=== PATIENT | male | born 1960 | race Caucasian/White ===

== ENCOUNTER 2020-07-24 08:26 | Inpatient (IN) | payer SELFPAY ==
--- NOTE | 2020-07-24 09:00 | RAD REPORT ---
EXAM DESCRIPTION: CT - Head Brain Wo Cont - 07/24/2020 8:51 am CLINICAL HISTORY: DIZZINESS, altered mental status COMPARISON: <Comparisons> TECHNIQUE: Axial 5 mm thick images of the head were obtained without IV contrast. All CT scans are performed using dose optimization technique as appropriate and may include automated exposure control or mA/KV adjustment according to patient size. FINDINGS: No intracranial hemorrhage, mass, edema or shift of mid-line structures. No acute cortical based infarction confirmed. No cortical edema or sulcal effacement. Atrophy changes are present slig htly greater than usually seen in a patient this age. Ventricles are in proportion to the amount of v olume loss. No abnormal extra-axial fluid collections. Chronic ischemic changes minimal. Arterial and physiologic calcifications are present. Mastoid air cells and visualized portions of the paranasal sinuses are clear. No acute bony findings. IMPRESSION: Negative noncontrast CT head examination for acute finding. Atrophy changes are present slightly greater than typically seen at this age.
[2020-07-24] MEDS ORDERED: NA CHLORIDE 0.9% 1,000 ML ONE ×2 (09:04→11:06)
[2020-07-24] MEDS ORDERED: FOLIC ACID 5 MG/ML VIAL ONE (09:06)
[2020-07-24 09:12] LABS: Absolute Lymphocytes (CBC) 0.6 K/uL (0.7-4.9); Basophils % 0.4 % (0-1.3); Hematocrit 37.9 % (39.6-49.0); Lymphocytes % 6.6 % (15.3-44.8); MPV 11.6 fL (7.6-11.3); RBC Red Blood Cell Count 3.87 M/uL (4.33-5.43)
[2020-07-24] MEDS ORDERED: FAMOTIDINE 20 MG/2 ML VIAL IV ONE (09:14)
[2020-07-24] MEDS ORDERED: THIAMINE 200 MG/2 ML INJ ONE ×2 (09:14→11:06)
[2020-07-24 09:16] LABS: Protime INR 1.46
[2020-07-24 09:42] LABS: ALT/SGPT 99 U/L (12-78); AST/SGOT 217 U/L (15-37); Albumin 3.2 g/dL (3.4-5.0); Alkaline Phosphatase 106 U/L (45-117); BUN Blood Urea Nitrogen 15 mg/dL (7-18); Bicarbonate 30 mmol/L (21-32); Bilirubin Direct 5.3 mg/dL (0-0.2); Glucose Level 140 mg/dL (74-106); Lipase 2713 U/L (73-393); NT PRO-BNP 403 pg/mL (<125); Protein, Total 7.7 g/dL (6.4-8.2); Sodium Level 133 mmol/L (136-145); Troponin (Emerg Dept Use Only) < 0.02 ng/mL (0.0-0.045)
[2020-07-24 09:46] LABS: Magnesium 1.4 mg/dL (1.8-2.4)
[2020-07-24 10:01] LABS: Blood Morphology Comment NOT SEEN (NOT SEEN); Platelet Estimate DECR; White Blood Cell Scan OK (OK)
--- NOTE | 2020-07-24 10:56 | RAD REPORT ---
EXAM DESCRIPTION: - CP - 07/24/2020 10:23 am CLINICAL HISTORY: DIZZINESS COMPARISON: No comparisons TECHNIQUE: Real-time sonographic evaluation of bilateral carotid and vertebral systems was performed . Vernon scale and Doppler interrogation were performed with waveform tracing bilaterally. FINDINGS: Normal high resistance waveforms are noted in both external carotid arteries. The common c arotid arteries and internal carotid arteries show normal low resistance waveforms. Calcified and noncalcified plaquing changes are present. No significant degree of luminal narrowing i dentifiable. Internal carotid arteries were quite tortuous increasing difficulty the examination. Pea k systolic and end diastolic velocity values and the ICA/CCA ratios are in the non-hemodynamically si gnificant range. Antegrade flow seen in both vertebral arteries. Velocity values and ratios were recorded and are retained in the patient's imaging records. IMPRESSION: Calcified plaquing changes on the right not seen to significantly narrow the vessel lume n. Velocity values and ratios do not indicate any significant degree of stenosis.
--- NOTE | 2020-07-24 11:02 | RAD REPORT ---
EXAM DESCRIPTION: CT - Abdomen Pelvis W Contrast - 07/24/2020 10:49 am CLINICAL HISTORY: ABD PAIN COMPARISON: No comparisons TECHNIQUE: Biphasic, helical CT imaging of the abdomen and pelvis was performed following 100 ml non -ionic IV contrast. No oral contrast. All CT scans are performed using dose optimization technique as appropriate and may include automated exposure control or mA/KV adjustment according to patient size. FINDINGS: No suspicious findings in the lung bases. The liver is grossly abnormal. A diffuse fatty infiltration is present. There is a prominent lobulate d contour of the liver with greater prominence of the left lobe and caudate lobe relative to the righ t. Areas of fibrotic change are scattered throughout the hepatic parenchyma. There is a mild heteroge neous enhancement and attenuation pattern of the liver; however, no clearly defined lesion seen that would indicate hepatocellular carcinoma. No portal vein thrombus. No pancreatic parenchymal mass lesion or peripancreatic changes seen. Mild splenomegaly changes are p resent with no focal splenic finding. Gallbladder and biliary tree are also without suspicious findin g. Gallstones can be occult on CT imaging. Symmetric renal function is seen with no hydronephrosis or suspicious renal mass. Enhancement pattern does not indicate pyelonephritis. Two nonobstructing 3 mm calculi seen in the lower pole of the righ t kidney. Urinary bladder is only partially filled. Lopez appear thickened and do appear to enhance s lightly. Cystitis is certainly possible. Prostate calcifications are present. No seminal vesicle abno rmality. No adrenal abnormalities. No gastric dilatation or gastric wall thickening. No abnormal edema or enhancement of the gastric par enchyma. No acute small bowel finding identifiable. Appendix is normal. No acute colon finding seen. No ascites present. No free air or pneumatosis. No hernia, mass or bulky lymphadenopathy. Disc and bone degenerative changes are present in the lower lumbar spine. No acute bone process. Scattered vascular calcifications are present. A few varices are seen in the mesenteries. IMPRESSION: Advanced cirrhosis changes in the liver with fatty infiltration and fibrosis changes jemal dent. No focal liver lesion to indicate hepatocellular carcinoma. No ascites, lymphadenopathy or other evidence for intra-abdominal or intrapelvic malignancy. Urinary bladder lopez are thickened. Cystitis would be possible. CT findings do not indicate pyelonep hritis. No acute or emergent GI finding.
[2020-07-24] MEDS ORDERED: MULTIVITAMINS 10 ML VIAL (INJ) IV ONE (11:06)
[2020-07-24] MEDS ORDERED: POTASSIUM 25 MEQ EFFERV TAB ONE (11:06)
[2020-07-24] MEDS ORDERED: Magnesium Sulfate 2gm IVPB 2 G/50 ML BAG IV ONE (11:08)
[2020-07-24 11:23] LABS: Urine Blood 1+ (Negative); Urine Glucose Negative (Negative); Urine Protein Trace (Negative); Urine Specific Gravity 1.015 (1.005-1.030)
[2020-07-24 11:31] LABS: Urine Blood 1+ (Negative); Urine Glucose NEGATIVE (Negative); Urine Protein TRACE (Negative); Urine Specific Gravity 1.015 (1.005-1.030)
[2020-07-24] MEDS ORDERED: CEFTRIAXONE/SWI 1gm 1 GM/10 ML SYR ONE (11:55)
--- NOTE | 2020-07-24 12:00 | ER ---
Nurse's Notes [facility] Name: Alexis Britton Age: 60 yrs Sex: Male : 1960 Arrival Date: 07/24/2020 Time: 08:30 Bed 7 Private MD: Diagnosis: Dizziness and giddiness;Altered mental status, unspecified;Alcoholic cirrhosis of liver without ascites;Hypomagnesemia;Hypokalemia;Urinary tract infection, site not specified;Alcohol abuse;Hypercalcemia Presentation: 07/24 08:43 Chief complaint: Friend reports N/V x 4 days, confusion and dizziness x 2 days. Seen at [facility] yesterday, dx: acute pyelonephritis, gastroenteritis, abnormal LFTs, volume depletion with hypovolemia, alcoholic cirrhosis, left AMA. Coronavirus screen: At this time, the client does not indicate any symptoms associated with coronavirus-19. Ebola Screen: No symptoms or risks identified at this time. Initial Sepsis Screen: Does the patient meet any 2 criteria? No. Patient's initial sepsis screen is negative. Does the patient have a suspected source of infection? No. Patient's initial sepsis screen is negative. Risk Assessment: Do you want to hurt yourself or someone else? Patient reports no desire to harm self or others. Onset of symptoms was July 19, 2020. 08:43 Method Of Arrival: Wheelchair 08:43 Acuity: HOLLY 2 hb Triage Assessment: 08:48 General: Appears in no apparent distress. Behavior is calm, cooperative. Pain: Pain hb currently is 8 out of 10 on a pain scale. EENT: No signs and/or symptoms were reported regarding the EENT system. Neuro: Level of Consciousness is awake, alert, obeys commands, Oriented to person, time, situation, Reports dizziness. Cardiovascular: Patient's skin is warm and dry. Rhythm is regular. Respiratory: Airway is patent Respiratory effort is even, unlabored, Respiratory pattern is regular, symmetrical. GI: Reports nausea, vomiting. : No signs and/or symptoms were reported regarding the genitourinary system. Derm: Skin is pink, warm \T\ dry. Musculoskeletal: No signs and/or symptoms reported regarding the musculoskeletal system. Historical: - Allergies: 08:47 No Known Allergies; - Home Meds: 11:10 None [Active]; ss - PMHx: 11:10 Cirrhosis; Alcoholism; ss - Immunization history:: Adult Immunizations up to date. - Social history:: Smoking status: Patient/guardian denies using tobacco. - Family history:: not pertinent. Screenin:47 Abuse screen: Denies threats or abuse. Denies injuries from another. Nutritional hb screening: No deficits noted. Tuberculosis screening: No symptoms or risk factors identified. Fall Risk Total Sparks Fall Scale indicates Low Risk Score (25-44 pts). Fall prevention measures have been instituted. Frequent Obs/Assesments occuring Family Present and informed to notify staff if they need to leave bedside As available Patient and Family Educated on Fall Prevention Program and strategies. Assessment: 08:48 General: see triage assessment. hb 09:30 Reassessment: Patient appears in no apparent distress at this time. No changes from hb previously documented assessment. Patient and/or family updated on plan of care and expected duration. Pain level reassessed. 10:50 Reassessment: pt in imaging at this time, not available for vs or medication admin at tw2 this time. 10:58 Reassessment: Pt returned from radiology. NAD. Friend remains at bedside. hb 11:32 Reassessment: provider at bedside at this time going over results with pt and pts tw2 friend. 12:20 Reassessment: provider Dr. Morales at bedside. tw2 13:36 Reassessment: Patient and/or family updated on plan of care and expected duration. Pain tw2 level reassessed. pt becoming restless, pulling monitoring cords off, pt educated as to the need to continue monitoring in his condition. pt agreeable at this time, provider notified. 14:11 Reassessment: Patient appears in no apparent distress at this time. No changes from hb previously documented assessment. Patient and/or family updated on plan of care and expected duration. Pain level reassessed. Vital Signs: 08:43 BP 137 / 88; Pulse 82; Resp 16; Temp 98.2; Pulse Ox 100% on R/A; Pain 8/10; hb 11:34 BP 131 / 85; Pulse 82; Resp 17; Pulse Ox 96% on R/A; tw2 12:30 BP 117 / 84; Pulse 81; Resp 17; Pulse Ox 98% on R/A; tw2 13:35 BP 122 / 83; Pulse 79; Resp 17; Pulse Ox 96% on R/A; tw2 14:11 BP 128 / 101; Pulse 82; Resp 18; Pulse Ox 96% on R/A; hb ED Course: 08:30 Patient arrived in ED. rg4 08:35 Segun Russo MD is Attending Physician. zuly 08:36 Beth Priest, EVELIA is Primary Nurse. tw2 08:46 Triage completed. hb 08:47 Arm band placed on. hb 08:47 Patient has correct armband on for positive identification. Placed in gown. Bed in low hb position. Call light in reach. civil cadd technician on. Pulse ox on. NIBP on. 08:51 CT Head Brain wo Cont In Process Unspecified. EDMS 09:05 AMMONIA Sent. tw2 10:09 US Carotid Artery Bilateral In Process Unspecified. EDMS 10:49 CT Abd/Pelvis - IV Contrast Only In Process Unspecified. EDMS 11:55 Marvin Morales is Hospitalizing Provider. zuly 12:38 XRAY Chest (1 view) In Process Unspecified. EDMS 14:14 No provider procedures requiring assistance completed. Patient admitted, IV remains in hb place. intact, No redness/swelling at site. Administered Medications: Discontinued: NS 0.9% 1000 ml IV at 125 ml/hr continuous 09:00 Drug: NS 0.9% 500 ml Route: IV; Rate: bolus; Site: right forearm; tw2 09:32 Follow up: Response: No adverse reaction; IV Status: Completed infusion; IV Intake: hb 500ml 09:00 Drug: foLIC Acid 1 mg Route: IVPB; Site: right forearm; tw2 09:02 Drug: Thiamine 100 mg Route: IV; Rate: bolus; Site: right forearm; tw2 09:35 Follow up: Response: No adverse reaction hb 09:02 Drug: Pepcid (famotidine) 20 mg Route: IVP; Site: right forearm; tw2 10:50 Follow up: Response: No adverse reaction tw2 09:34 Drug: NS 0.9% 1000 ml Route: IV; Rate: 125 ml/hr; Site: right forearm; tw2 10:59 Drug: Potassium Effervescent Tablet 50 mEq Route: PO; hb 11:20 Follow up: Response: No adverse reaction tw2 11:00 Drug: Banana Bag - (NS 0.9% 1000 ml, foLIC Acid 1 mg, Thiamine 100 mg, Multivitamin 1 hb amp) Route: IV; Rate: 125 ml/hr; Site: right forearm; 11:15 Follow up: IV Status: Infusion continued upon admission tw2 11:01 Drug: Magnesium Sulfate 2 grams Route: IVPB; Infused Over: 2 hrs; Site: right forearm; hb 11:38 Drug: Rocephin (cefTRIAXone) 1 grams Route: IV; Rate: per protocol; Site: right forearm;tw2 11:40 Follow up: Response: No adverse reaction; IV Status: Completed infusion; IV Intake: [id number] 12:05 Drug: Ativan (LORazepam) 1 mg Route: IVP; Site: right antecubital; ld1 12:30 Follow up: Response: No adverse reaction hb Intake: 09:32 IV: 500ml; Total: 500ml. hb 11:40 IV: 10ml; Total: 510ml. tw2 Outcome: 11:58 Decision to Hospitalize by Provider. [facility] 14:15 Admitted to Med/surg accompanied by tech, via wheelchair, room 401, with chart, Report hb called to EVELIA Isaac. 14:15 Condition: stable 14:15 Instructed on follow up and referral plans. the need for admit, medication usage, Demonstrated understanding of instructions, follow-up care. 14:19 Patient left the ED. Signatures: Dispatcher [employer] EDMA Segun Russo MD MD cha Smirch, Shelby, RN RN ss Baxter, Heather, RN RN hb Wise, Tara, RN RN tw2 Garcia, Rubi 4 Vanda Morris RN RN ld1 Corrections: (The following items were deleted from the chart) 08:49 08:43 Chief complaint: Friend reports N/V x 4 days, confusion x 2 days. Seen at [facility] yesterday, dx: acute pyelonephritis, gastroenteritis, abnormal LFTs, volume depletion with hypovolemia, alcoholic cirrhosis, left AMA. hb
--- NOTE | 2020-07-24 12:00 | EDPHYS ---
Physician Documentation [facility] Name: Alexis Britton Age: 60 yrs Sex: Male : 1960 Arrival Date: 07/24/2020 Time: 08:30 Bed 7 Private MD: ED Physician Segun Russo HPI: 07/24 11:42 This 60 yrs old Male presents to ER via Wheelchair with complaints of zuly Dizziness, Confusion. 11:42 The patient presents with dizziness, generalized weakness, a sense of confusion. Onset: zuly The symptoms/episode began/occurred 2 day(s) ago. Context: occurred at home. Modifying factors: The symptoms are alleviated by nothing, the symptoms are aggravated by nothing, changing position. Associated signs and symptoms: Pertinent positives: confusion, near-syncope, palpitations. Severity of symptoms: At their worst the symptoms were mild last night, in the emergency department the symptoms have improved mildly. Patient's baseline: Neuro: alert and fully oriented. The patient has experienced similar episodes in the past, multiple times. Historical: - Allergies: 08:47 No Known Allergies; hb - Home Meds: 11:10 None [Active]; ss - PMHx: 11:10 Cirrhosis; Alcoholism; ss - Immunization history:: Adult Immunizations up to date. - Social history:: Smoking status: Patient/guardian denies using tobacco. - Family history:: not pertinent. ROS: 11:42 Constitutional: Negative for fever, chills, and weight loss, Eyes: Negative for injury, zuly pain, redness, and discharge, ENT: Negative for injury, pain, and discharge, Neck: Negative for injury, pain, and swelling, Cardiovascular: Negative for chest pain, palpitations, and edema, Respiratory: Negative for shortness of breath, cough, wheezing, and pleuritic chest pain, Abdomen/GI: Negative for abdominal pain, nausea, vomiting, diarrhea, and constipation, Back: Negative for injury and pain, MS/Extremity: Negative for injury and deformity, Skin: Negative for injury, rash, and discoloration, Psych: Negative for depression, anxiety, suicide ideation, homicidal ideation, and hallucinations, Allergy/Immunology: Negative for hives, rash, and allergies, Endocrine: Negative for neck swelling, polydipsia, polyuria, polyphagia, and marked weight changes, Hematologic/Lymphatic: Negative for swollen nodes, abnormal bleeding, and unusual bruising. 11:42 : Positive for urinary symptoms, burning with urination. 11:42 Neuro: Positive for altered mental status, weakness. Exam: 11:42 Constitutional: This is a well developed, well nourished patient who is awake, alert, zuly and in no acute distress. Head/Face: Normocephalic, atraumatic. Eyes: Pupils equal round and reactive to light, extra-ocular motions intact. Lids and lashes normal. Conjunctiva and sclera are non-icteric and not injected. Cornea within normal limits. Periorbital areas with no swelling, redness, or edema. ENT: Nares patent. No nasal discharge, no septal abnormalities noted. Tympanic membranes are normal and external auditory canals are clear. Oropharynx with no redness, swelling, or masses, exudates, or evidence of obstruction, uvula midline. Mucous membranes moist. Neck: Trachea midline, no thyromegaly or masses palpated, and no cervical lymphadenopathy. Supple, full range of motion without nuchal rigidity, or vertebral point tenderness. No Meningismus. Chest/axilla: Normal chest wall appearance and motion. Nontender with no deformity. No lesions are appreciated. Cardiovascular: Regular rate and rhythm with a normal S1 and S2. No gallops, murmurs, or rubs. Normal PMI, no JVD. No pulse deficits. Respiratory: Lungs have equal breath sounds bilaterally, clear to auscultation and percussion. No rales, rhonchi or wheezes noted. No increased work of breathing, no retractions or nasal flaring. Back: No spinal tenderness. No costovertebral tenderness. Full range of motion. Male : Normal genitalia with no discharge or lesions. Skin: Warm, dry with normal turgor. Normal color with no rashes, no lesions, and no evidence of cellulitis. MS/ Extremity: Pulses equal, no cyanosis. Neurovascular intact. Full, normal range of motion. Neuro: Awake and alert, GCS 15, oriented to person, place, time, and situation. Cranial nerves II-XII grossly intact. Motor strength 5/5 in all extremities. Sensory grossly intact. Cerebellar exam normal. Normal gait. Psych: Awake, alert, with orientation to person, place and time. Behavior, mood, and affect are within normal limits. 11:42 Abdomen/GI: Inspection: distension, that is mild, Bowel sounds: normal, Palpation: mild abdominal tenderness, in the right upper quadrant, Liver: tenderness, that is mild, Hernia: not appreciated. 11:52 ECG was reviewed by the Attending Physician. zuly Vital Signs: 08:43 BP 137 / 88; Pulse 82; Resp 16; Temp 98.2; Pulse Ox 100% on R/A; Pain 8/10; hb 11:34 BP 131 / 85; Pulse 82; Resp 17; Pulse Ox 96% on R/A; tw2 12:30 BP 117 / 84; Pulse 81; Resp 17; Pulse Ox 98% on R/A; tw2 13:35 BP 122 / 83; Pulse 79; Resp 17; Pulse Ox 96% on R/A; tw2 14:11 BP 128 / 101; Pulse 82; Resp 18; Pulse Ox 96% on R/A; hb MDM: 08:35 Patient medically screened. zuly 11:49 Differential diagnosis: cardiac arrhythmia, CVA, generalized weakness, head injury, zuly hypovolemia, idiopathic dizziness, near-syncope, TIA. Data reviewed: vital signs, nurses notes, lab test result(s), EKG, radiologic studies, CT scan, plain films. Data interpreted: monitoring analyst: rate is 82 beats/min, rhythm is regular, Pulse oximetry: on room air is 96 %. Test interpretation: by ED physician or midlevel provider: ECG, plain radiologic studies. Counseling: I had a detailed discussion with the patient and/or guardian regarding: the historical points, exam findings, and any diagnostic results supporting the discharge/admit diagnosis, the presence of at least one elevated blood pressure reading (>120/80) during this emergency department visit, lab results, radiology results, the need for further work-up and treatment in the hospital. 07/24 08:39 Order name: Basic Metabolic Panel; Complete Time: 10:26 07/24 08:39 Order name: CBC with Diff; Complete Time: 10:07/24 08:39 Order name: LFT's; Complete Time: 10:26 07/24 08:39 Order name: Magnesium; Complete Time: 10:07/24 08:39 Order name: NT PRO-BNP; Complete Time: 10:07/24 08:39 Order name: PT-INR; Complete Time: 09:46 [facility] 07/24 08:39 Order name: Troponin (emerg Dept Use Only); Complete Time: 10:26 [facility] 07/24 08:39 Order name: Lipase; Complete Time: 10:26 [facility] 07/24 08:39 Order name: Urine Culture [facility] 07/24 08:48 Order name: AMMONIA; Complete Time: 10:33 [facility] 07/24 09:19 Order name: CBC Smear Scan; Complete Time: 10:26 [facility] 07/24 10:40 Order name: SARS-COV-2 RT PCR; Complete Time: 11:10 [facility] 07/24 11:23 Order name: Urine Dipstick-Ancillary; Complete Time: 11:52 [facility] 07/24 08:39 Order name: XRAY Chest (1 view) [facility] 07/24 08:39 Order name: EKG; Complete Time: 08:40 [facility] 07/24 08:39 Order name: CT Head Brain wo Cont; Complete Time: 09:46 [facility] 07/24 08:39 Order name: US Carotid Artery Bilateral; Complete Time: 11:10 [facility] 07/24 10:35 Order name: CT Abd/Pelvis - IV Contrast Only; Complete Time: 11:10 [facility] 07/24 11:23 Order name: Urine Dipstick--Ancillary (enter results); Complete Time: 11:52 [facility] 07/24 08:39 Order name: Cardiac monitoring; Complete Time: 08:43 [facility] 07/24 08:39 Order name: EKG - Nurse/Tech; Complete Time: 08:43 [facility] 07/24 08:39 Order name: IV Saline Lock; Complete Time: 10:50 [facility] 07/24 08:39 Order name: Labs collected and sent; Complete Time: 10:50 [facility] 07/24 08:39 Order name: O2 Per Protocol; Complete Time: 08:43 [facility] 07/24 08:39 Order name: O2 Sat Monitoring; Complete Time: 08:43 [facility] 07/24 08:39 Order name: Urine Dipstick-Ancillary (obtain specimen); Complete Time: 11:43 [facility] EC:52 Rate is 106 beats/min. Rhythm is regular. QRS [place] is Normal. VT interval is normal. zuly QRS interval is normal. QT interval is normal. No Q waves. T waves are Normal. No ST changes noted. Clinical impression: Sinus tachycardia and No evidence of ischemia. Interpreted by me. Reviewed by me. Administered Medications: Discontinued: NS 0.9% 1000 ml IV at 125 ml/hr continuous 09:00 Drug: NS 0.9% 500 ml Route: IV; Rate: bolus; Site: right forearm; tw2 09:32 Follow up: Response: No adverse reaction; IV Status: Completed infusion; IV Intake: hb 500ml 09:00 Drug: foLIC Acid 1 mg Route: IVPB; Site: right forearm; tw2 09:02 Drug: Thiamine 100 mg Route: IV; Rate: bolus; Site: right forearm; tw2 09:35 Follow up: Response: No adverse reaction hb 09:02 Drug: Pepcid (famotidine) 20 mg Route: IVP; Site: right forearm; tw2 10:50 Follow up: Response: No adverse reaction tw2 09:34 Drug: NS 0.9% 1000 ml Route: IV; Rate: 125 ml/hr; Site: right forearm; tw2 10:59 Drug: Potassium Effervescent Tablet 50 mEq Route: PO; hb 11:20 Follow up: Response: No adverse reaction tw2 11:00 Drug: Banana Bag - (NS 0.9% 1000 ml, foLIC Acid 1 mg, Thiamine 100 mg, Multivitamin 1 hb amp) Route: IV; Rate: 125 ml/hr; Site: right forearm; 11:15 Follow up: IV Status: Infusion continued upon admission tw2 11:01 Drug: Magnesium Sulfate 2 grams Route: IVPB; Infused Over: 2 hrs; Site: right forearm; hb 11:38 Drug: Rocephin (cefTRIAXone) 1 grams Route: IV; Rate: per protocol; Site: right forearm;tw2 11:40 Follow up: Response: No adverse reaction; IV Status: Completed infusion; IV Intake: [id number] 12:05 Drug: Ativan (LORazepam) 1 mg Route: IVP; Site: right antecubital; ld1 12:30 Follow up: Response: No adverse reaction hb Disposition: 07/24/20 11:58 Hospitalization ordered by Marvin Morales for Inpatient Admission. Preliminary diagnosis are Dizziness and giddiness, Altered mental status, unspecified, Alcoholic cirrhosis of liver without ascites, Hypomagnesemia, Hypokalemia, Urinary tract infection, site not specified, Alcohol abuse, Hypercalcemia. - Bed requested for Telemetry/MedSurg (Inpatient). - Status is Inpatient Admission. hb - Condition is Fair. - Problem is new. - Symptoms have improved. Signatures: Dispatcher [employer] [facility] Segun Russo MD MD cha Smirch, Shelby, RN RN Oly Hong RN RN Beth Priest RN RN tw2 Vanda Morris RN RN ld1 Corrections: (The following items were deleted from the chart) 09:46 08:40 CORONAVIRUS+MR.LAB.BRZ ordered. [facility] 12:05 11:58 Hospitalization Ordered by Marvin Morales for Inpatient Admission. Preliminary [facility] diagnosis is Dizziness and giddiness; Altered mental status, unspecified; Alcoholic cirrhosis of liver without ascites; Hypomagnesemia; Hypokalemia; Urinary tract infection, site not specified; Alcohol abuse. Bed requested for Telemetry/MedSurg (Inpatient). Status is Inpatient Admission. Condition is Fair. Problem is new. Symptoms have improved. [facility] 13:52 12:05 07/24/2020 11:58 Hospitalization Ordered by Marvin Morales for Inpatient ss Admission. Preliminary diagnosis is Dizziness and giddiness; Altered mental status, unspecified; Alcoholic cirrhosis of liver without ascites; Hypomagnesemia; Hypokalemia; Urinary tract infection, site not specified; Alcohol abuse; Hypercalcemia. Bed requested for Telemetry/MedSurg (Inpatient). Status is Inpatient Admission. Condition is Fair. Problem is new. Symptoms have improved. zuly 14:19 13:52 07/24/2020 11:58 Hospitalization Ordered by Marvin Morales for Inpatient hb Admission. Preliminary diagnosis is Dizziness and giddiness; Altered mental status, unspecified; Alcoholic cirrhosis of liver without ascites; Hypomagnesemia; Hypokalemia; Urinary tract infection, site not specified; Alcohol abuse; Hypercalcemia. Bed requested for Telemetry/MedSurg (Inpatient). Status is Inpatient Admission. Condition is Fair. Problem is new. Symptoms have improved. ss
[2020-07-24] MEDS ORDERED: LORazepam 2 MG/ML VIAL ONE (12:23)
--- NOTE | 2020-07-24 12:47 | RAD REPORT ---
EXAM DESCRIPTION: Jordana Single View07/24/2020 12:39 pm CLINICAL HISTORY: cough COMPARISON: none FINDINGS: The lungs appear clear of acute infiltrate. The heart is normal size IMPRESSION: No acute abnormalities displayed
--- NOTE | 2020-07-24 12:56 | P.HP ---
Certification for Inpatient Patient admitted to: Inpatient With expected LOS: >2 Midnights Practitioner: I am a practitioner with admitting privileges, knowledge of patient current condition, hospital course, and medical plan of care. Services: Services provided to patient in accordance with Admission requirements found in Title 42 Section 412.3 of the Code of Federal Regulations Patient History Date of Service: 07/24/20 Reason for admission: Nausea, altered mental status History of Present Illness: 60-year-old gentleman was brought to the emergency department by a friend due to altered mental status. According to the friend patient was visiting from [facility] and over the past 3 days, patient has been experiencing nausea, dry heaving, reduced oral intake. He became confused yesterday, went to [facility] ED, patient given antiemetics. He apparently signed out against medical advice. According to a friend confusion became worse and therefore presented to the ED today. CT abdomen and pelvis done in the ED demonstrate liver cirrhosis with fatty infiltrate. His bilirubin is severely elevated. Ammonia level is normal. Patient admitted to drinking whiskey daily. His last alcohol drink was about 5 days ago. He appeared confused during my examination. He does not exhibit other signs of alcohol withdrawal except the altered mental status. Patient is hospitalized for further management. Allergies No Known Allergies Allergy (Unverified 07/24/20 13:38) Home Medications: NK [No Home Meds] 07/24/20 - Past Medical/Surgical History -: Chronic alcoholism Past Surgical History: Unable to obtain - Family History Mother Notes: dementia Father Notes: dementia - Social History Alcohol use: Yes CD- Drugs: No Place of Residence: Home Review of Systems Other: Except as documented, all other systems reviewed and negative. Physical Examination - Physical Exam General: In no apparent distress, Confused HEENT: Atraumatic, Normocephalic, PERRLA, Mucous membr. moist/pink, EOMI, Scleral icterus Neck: Supple, JVD not distended Respiratory: Clear to auscultation bilaterally, Normal air movement Cardiovascular: No edema, Regular rate/rhythm, Normal S1 S2, No murmurs Capillary refill: <2 Seconds Gastrointestinal: Normal bowel sounds, Soft and benign, Non-distended, W/out hepatomegaly, W/out splenomegaly, No tenderness Musculoskeletal: No swelling, No tenderness Integumentary: No rashes, No erythema, Other (Jaundiced skin) Neurological: Normal speech, Normal strength at 5/5 x4 extr, Cranial nerves 3-12 intact Lymphatics: No axilla or inguinal lymphadenopathy - Studies Laboratory Data (last 24 hrs) 07/24/20 08:59: PT 16.9 H, INR 1.46 07/24/20 08:59: WBC 8.90, Hgb 13.0 L, Hct 37.9 L, Plt Count 69 L 07/24/20 08:59: Sodium 133 L, Potassium 3.0 L, BUN 15, Creatinine 1.05, Glucose 140 H, Magnesium 1.4 L*, Total Bilirubin 8.0 H*, AST 217 H, ALT 99 H, Alkaline Phosphatase 106, Lipase 2713 H Assessment and Plan - Problems (Diagnosis) (1) Metabolic encephalopathy Current Visit: Yes Status: Acute (2) Hyperbilirubinemia Current Visit: Yes Status: Acute (3) Chronic alcoholism Current Visit: Yes Status: Acute (4) UTI (urinary tract infection) Current Visit: Yes Status: Acute (5) Hypercalcemia Current Visit: Yes Status: Acute - Plan Admit to the medical floor. Start IV Rocephin for UTI. Unclear if altered mental status is related to hepatic encephalopathy. Patient will be treated with laxatives. GI consult. 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 Labs ordered to rule out other causes of liver cirrhosis. [place] protocol initiated for alcohol withdrawal. Hydrate with Banana bag. Follow urine culture. - Advance Directives Does patient have a Living Will: No Does patient have a Durable POA for Healthcare: No
[2020-07-24] MEDS ORDERED: FLUMAZENIL 0.1 MG/ML (5 mL VIAL) IV PRN (13:41)
[2020-07-24 14:30] VITALS: BMI 23.0
[2020-07-24] MEDS: FOLIC ACID 1 MG, MULTIVITAMINS INJ 10 ML, THIAMINE HCL 100 MG in NA CHLORIDE 0.9% 1,000 ML IV SCH (15:14)
[2020-07-24] MEDS: LORAZEPAM 1 MG TABLET PO SCH ×3 (15:23→22:14)
[2020-07-24 20:24] LABS: Magnesium 1.9 mg/dL (1.8-2.4)
[2020-07-24] MEDS: LACTULOSE 20 GM/30 ML UCUP PO SCH ×3 (21:00→22:14)
[2020-07-24] MEDS ORDERED: POTASSIUM CL SA 10 MEQ TAB PO ONE (22:28)
[2020-07-25] MEDS: LORAZEPAM 1 MG TABLET PO SCH ×6 (03:01→23:30)
[2020-07-25 04:23] LABS: Absolute Lymphocytes (CBC) 0.6 K/uL (0.7-4.9); Basophils % 0.7 % (0-1.3); Hematocrit 35.7 % (39.6-49.0); Lymphocytes % 10.4 % (15.3-44.8)
[2020-07-25 04:52] LABS: ALT/SGPT 82 U/L (12-78); AST/SGOT 180 U/L (15-37); Albumin 2.8 g/dL (3.4-5.0); Alkaline Phosphatase 97 U/L (45-117); BUN Blood Urea Nitrogen 15 mg/dL (7-18); Bicarbonate 31 mmol/L (21-32); Ferritin 230.2 ng/mL (26-388); Glucose Level 86 mg/dL (74-106); HDL Cholesterol 20 mg/dL (40-60); LDL Cholesterol, Calculated 109 (<130); Lipase 3038 U/L (73-393); Magnesium 1.8 mg/dL (1.8-2.4); Phosphorus 1.6 mg/dL (2.5-4.9); Potassium 3.3 mmol/L (3.5-5.1); Protein, Total 6.8 g/dL (6.4-8.2); Sodium Level 138 mmol/L (136-145); Transferrin 158 mg/dL (200-360)
[2020-07-25 04:53] LABS: Bilirubin Total 7.1 mg/dL (0.2-1.0)
[2020-07-25] MEDS ORDERED: MAGNESIUM SULFATE 1 gm IVPB 1 GM/100 ML BAG IV ONE (06:12)
[2020-07-25] MEDS: POTASS/SODIUM PHOSPHATE 1 PKT POWD.PACK PO SCH ×3 (06:47→09:51)
--- NOTE | 2020-07-25 07:39 | EKG ---
Test Date: 2020-07-24 Test Time: 08:40:31 Automobile Contract Clerk: CITLALI MEASUREMENT RESULTS: Intervals: Rate: 106 NE: 156 QRSD: 68 QT: 320 QTc: [address] [place]: P: 22 NE: 156 QRS: -26 T: 54 INTERPRETIVE STATEMENTS: Sinus tachycardia Otherwise normal ECG No previous ECG available for comparison Electronically Signed On 07-25-20 07:36:08 CDT by Jake Hernández
[2020-07-25] MEDS: FOLIC ACID 1 MG, MULTIVITAMINS INJ 10 ML, THIAMINE HCL 100 MG in NA CHLORIDE 0.9% 1,000 ML IV SCH (09:49)
[2020-07-25] MEDS: CEFTRIAXONE/SWI 1gm 1 GM/10 ML SYR IV SCH (09:51)
[2020-07-25] MEDS: LACTULOSE 20 GM/30 ML UCUP PO SCH ×2 (09:51→21:38)
--- NOTE | 2020-07-25 15:48 | P.PN ---
Subjective Date of Service: 07/25/20 Chief Complaint: Nausea, altered mental status Patient is doing better today. He is alert and oriented. Caries experiencing hand tremors. He was seen feeding himself this morning. Physical Examination - Vital Signs Temperature: 97.5 F Blood Pressure: 110/78 Pulse: 77 Respirations: 16 Pulse Ox (%): 94 - Physical Exam General: Alert, In no apparent distress, Oriented x3 HEENT: PERRLA, Mucous membr. moist/pink, EOMI, Scleral icterus Neck: Supple, JVD not distended Respiratory: Clear to auscultation bilaterally, Normal air movement Cardiovascular: No edema, Regular rate/rhythm, Normal S1 S2 Gastrointestinal: Normal bowel sounds, Soft and benign, Non-distended, No tenderness Musculoskeletal: No swelling, No tenderness Integumentary: No rashes, No erythema, Other (Jaundiced skin) Neurological: Normal strength at 5/5 x4 extr, Cranial nerves 3-12 intact, Other (Hand tremors) Assessment And Plan - Current Problems (Diagnosis) (1) Metabolic encephalopathy Current Visit: Yes Status: Acute (2) Hyperbilirubinemia Current Visit: Yes Status: Acute (3) Chronic alcoholism Current Visit: Yes Status: Acute (4) UTI (urinary tract infection) Current Visit: Yes Status: Acute (5) Hypercalcemia Current Visit: Yes Status: Acute - Plan Urine culture: No growth to date. Blood cultures: No growth to date. Continue IV Rocephin for UTI. Unclear if altered mental status is related to hepatic encephalopathy. Altered mental status is better. Continue lactulose GI input appreciated. 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 CIWA protocol initiated for alcohol withdrawal. Continue hydration with Banana bag.
[2020-07-25] MEDS ORDERED: POTASSIUM CL SA 10 MEQ TAB PO ONE (21:00)
[2020-07-25 22:56] LABS: Urine Appearance CLEAR (Clear); Urine Blood NEGATIVE (Negative); Urine Color DK YELLOW (Yellow); Urine Glucose NEGATIVE (Negative); Urine Protein NEGATIVE (Negative); Urine Urobilinogen 0.2 mg/dL (0.2-1.0)
[2020-07-25 22:58] LABS: Urine Microscopic Reflex ORDER UMIC
[2020-07-25 23:02] LABS: Urine Bilirubin 2+ (Negative)
[2020-07-26 00:19] LABS: Urine Bacteria <20 /HPF (NONE SEEN); Urine RBC <5 /HPF (NONE SEEN)
[2020-07-26] MEDS: LORAZEPAM 1 MG TABLET PO SCH ×5 (03:04→23:47)
[2020-07-26 08:17] LABS: ALT/SGPT 72 U/L (12-78); AST/SGOT 142 U/L (15-37); Albumin 2.6 g/dL (3.4-5.0); Alkaline Phosphatase 104 U/L (45-117); BUN Blood Urea Nitrogen 13 mg/dL (7-18); Bicarbonate 30 mmol/L (21-32); Glucose Level 87 mg/dL (74-106); Magnesium 1.9 mg/dL (1.8-2.4); Phosphorus 2.4 mg/dL (2.5-4.9); Potassium 3.8 mmol/L (3.5-5.1); Protein, Total 6.6 g/dL (6.4-8.2); Sodium Level 137 mmol/L (136-145)
[2020-07-26 08:18] LABS: Bilirubin Total 6.8 mg/dL (0.2-1.0)
[2020-07-26] MEDS: CEFTRIAXONE/SWI 1gm 1 GM/10 ML SYR IV SCH (08:22)
[2020-07-26] MEDS: LACTULOSE 20 GM/30 ML UCUP PO SCH ×2 (08:22→20:13)
[2020-07-26] MEDS ORDERED: POTASSIUM CL SA 10 MEQ TAB PO ONE (08:25)
[2020-07-26 08:26] LABS: Absolute Lymphocytes (CBC) 0.8 K/uL (0.7-4.9); Basophils % 1.1 % (0-1.3); Hematocrit 37.4 % (39.6-49.0); Lymphocytes % 14.7 % (15.3-44.8); MPV 12.3 fL (7.6-11.3); RBC Red Blood Cell Count 3.69 M/uL (4.33-5.43)
[2020-07-26] MEDS: FOLIC ACID 1 MG, MULTIVITAMINS INJ 10 ML, THIAMINE HCL 100 MG in NA CHLORIDE 0.9% 1,000 ML IV SCH (09:19)
--- NOTE | 2020-07-26 14:06 | P.PN ---
Subjective Date of Service: 07/26/20 Chief Complaint: Nausea, altered mental status Patient remained awake and alert. He has tremors and has some difficulty with ambulating. He denies any hallucinations He is tolerating clear liquid diet. Nursing staff report a couple of bowel movements this morning. Physical Examination - Vital Signs Temperature: 98.3 F Blood Pressure: 122/81 Pulse: 78 Respirations: 18 Pulse Ox (%): 95 - Physical Exam General: Oriented x3, Other (Awake) HEENT: Mucous membr. moist/pink, EOMI, Scleral icterus Neck: JVD not distended Respiratory: Clear to auscultation bilaterally, Normal air movement Cardiovascular: No edema, Regular rate/rhythm, Normal S1 S2 Gastrointestinal: Soft and benign, Non-distended, No tenderness Musculoskeletal: No swelling, No tenderness Integumentary: No rashes Neurological: Normal strength at 5/5 x4 extr, Other (Tremors, gait instability.) - Studies Microbiology Data (last 24 hrs): 07/24/20 11:19 Clean Catch Urine [place] Count - Final No growth. 07/24/20 11:19 Clean Catch Urine - Final No growth. Assessment And Plan - Current Problems (Diagnosis) (1) Metabolic encephalopathy Current Visit: Yes Status: Acute (2) Hyperbilirubinemia Current Visit: Yes Status: Acute (3) Chronic alcoholism Current Visit: Yes Status: Acute (4) UTI (urinary tract infection) Current Visit: Yes Status: Acute (5) Hypercalcemia Current Visit: Yes Status: Acute - Plan Urine culture: No growth to date. Blood cultures: No growth to date. Continue IV Rocephin for UTI. Patient to complete 5 days of antibiotic Unclear if altered mental status is related to hepatic encephalopathy. Altered mental status is better. Continue lactulose and titrate for at least 2 bowel movement per day. GI input appreciated. 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 Continue CIWA. Start weaning Ativan.
[2020-07-27 04:31] LABS: Absolute Lymphocytes (CBC) 0.7 K/uL (0.7-4.9); Basophils % 1.2 % (0-1.3); Hematocrit 37.5 % (39.6-49.0); Lymphocytes % 13.1 % (15.3-44.8); MPV 11.4 fL (7.6-11.3); RBC Red Blood Cell Count 3.68 M/uL (4.33-5.43)
[2020-07-27 05:12] LABS: ALT/SGPT 67 U/L (12-78); AST/SGOT 124 U/L (15-37); Albumin 2.4 g/dL (3.4-5.0); Alkaline Phosphatase 116 U/L (45-117); BUN Blood Urea Nitrogen 10 mg/dL (7-18); Bicarbonate 28 mmol/L (21-32); Glucose Level 97 mg/dL (74-106); Magnesium 1.9 mg/dL (1.8-2.4); Phosphorus 2.1 mg/dL (2.5-4.9); Potassium 3.8 mmol/L (3.5-5.1); Protein, Total 6.5 g/dL (6.4-8.2); Sodium Level 139 mmol/L (136-145)
[2020-07-27 05:30] LABS: Bilirubin Total 6.5 mg/dL (0.2-1.0)
[2020-07-27] MEDS: LORAZEPAM 1 MG TABLET PO SCH ×3 (05:38→15:00)
[2020-07-27] MEDS: LACTULOSE 20 GM/30 ML UCUP PO SCH ×2 (08:31→19:12)
[2020-07-27] MEDS: FOLIC ACID 1 MG TABLET PO SCH (08:31)
[2020-07-27] MEDS: CEFTRIAXONE/SWI 1gm 1 GM/10 ML SYR IV SCH (08:31)
[2020-07-27] MEDS: THIAMINE HCL 100 MG TABLET PO SCH (08:31)
[2020-07-27] MEDS ORDERED: POTASSIUM PHOS IN 0.9 % NACL 15 MMOL/250 ML BAG IV ONE (09:00)
--- NOTE | 2020-07-27 14:46 | P.PN ---
Subjective Date of Service: 07/27/20 Chief Complaint: Nausea, altered mental status Patient remain awake and alert. H ambulated with a walker better during physical therapy today. He denies any hallucinations He is tolerating diet Physical Examination - Vital Signs Temperature: 97.2 F Blood Pressure: 108/75 Pulse: 99 Respirations: 16 Pulse Ox (%): 96 - Physical Exam General: Alert, In no apparent distress, Oriented x3 HEENT: Mucous membr. moist/pink Neck: JVD not distended Respiratory: Clear to auscultation bilaterally, Normal air movement Cardiovascular: No edema, Regular rate/rhythm, Normal S1 S2 Gastrointestinal: Normal bowel sounds, Soft and benign, Non-distended, No tenderness Musculoskeletal: No swelling, No contractures Integumentary: No rashes Neurological: Normal strength at 5/5 x4 extr, Cranial nerves 3-12 intact, Other (Hand tremor is better) Assessment And Plan - Current Problems (Diagnosis) (1) Metabolic encephalopathy Current Visit: Yes Status: Acute (2) Hyperbilirubinemia Current Visit: Yes Status: Acute (3) Chronic alcoholism Current Visit: Yes Status: Acute (4) UTI (urinary tract infection) Current Visit: Yes Status: Acute (5) Hypercalcemia Current Visit: Yes Status: Acute - Plan Urine culture: No growth to date. Blood cultures: No growth to date. Continue IV Rocephin for UTI. Patient to complete 5 days of antibiotic Unclear if altered mental status is related to hepatic encephalopathy. Altered mental status has resolved. Continue lactulose and titrate for at least 2 bowel movement per day. Discriminant factor is less than 32. No indication for steroid. GI input appreciated. 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 Wean Ativan. Patient's functional capacities improving. Possible discharge in a.m. if his gait improve.
[2020-07-27] MEDS: ONDANSETRON 4 MG/2 ML VIAL IV PRN (17:10)
[2020-07-27] MEDS: LORAZEPAM 1 MG TABLET PO PRN ×2 (19:32→21:49)
[2020-07-27] MEDS ORDERED: METOCLOPRAMIDE 10 MG/2mL INJ IV ONE (20:00)
[2020-07-27] MEDS: MAGNES/ALUMIN/SIMET 30ML UCUP PO PRN (21:49)
[2020-07-28 02:00] LABS: HBsAG Nonreactive (Nonreactive)
[2020-07-28] MEDS: LORAZEPAM 1 MG TABLET PO SCH (02:23)
[2020-07-28] MEDS: MAGNES/ALUMIN/SIMET 30ML UCUP PO PRN ×2 (03:07→08:10)
[2020-07-28] MEDS: ONDANSETRON 4 MG/2 ML VIAL IV PRN ×2 (04:07→09:41)
[2020-07-28 05:07] LABS: BUN Blood Urea Nitrogen 11 mg/dL (7-18); Bicarbonate 27 mmol/L (21-32); Glucose Level 117 mg/dL (74-106); Phosphorus 1.9 mg/dL (2.5-4.9); Potassium 3.6 mmol/L (3.5-5.1); Sodium Level 136 mmol/L (136-145)
[2020-07-28] MEDS: FOLIC ACID 1 MG TABLET PO SCH (08:00)
[2020-07-28] MEDS: CEFTRIAXONE/SWI 1gm 1 GM/10 ML SYR IV SCH (08:00)
[2020-07-28] MEDS: THIAMINE HCL 100 MG TABLET PO SCH (08:00)
[2020-07-28] MEDS: LACTULOSE 20 GM/30 ML UCUP PO SCH (08:11)
[2020-07-28 08:51] VITALS: O2SAT 98
[2020-07-28] MEDS ORDERED: POTASSIUM PHOS IN 0.9 % NACL 15 MMOL/250 ML BAG IV ONE (09:00)
--- NOTE | 2020-07-28 12:37 | P.DS ---
Admission Date: 07/24/20 Discharge Date: 07/28/20 Disposition: ROUTINE DISCHARGE Discharge Condition: FAIR Reason for Admission: Nausea, altered mental status - Problems (1) Metabolic encephalopathy Current Visit: Yes Status: Acute (2) Hyperbilirubinemia Current Visit: Yes Status: Acute (3) Chronic alcoholism Current Visit: Yes Status: Acute (4) UTI (urinary tract infection) Current Visit: Yes Status: Acute (5) Hypercalcemia Current Visit: Yes Status: Acute Brief History of Present Illness: 60-year-old gentleman was brought to the emergency department by a friend due to altered mental status. According to the friend patient was visiting from [facility] and over the past 3 days, patient has been experiencing nausea, dry heaving, reduced oral intake. He became confused yesterday, went to [place] ED, patient given antiemetics. He apparently signed out against medical advice. According to a friend confusion became worse and therefore presented to the ED today. CT abdomen and pelvis done in the ED demonstrate liver cirrhosis with fatty infiltrate. His bilirubin is severely elevated. Ammonia level is normal. Patient admitted to drinking whiskey daily. His last alcohol drink was about 5 days ago. He appeared confused during my examination. He does not exhibit other signs of alcohol withdrawal except the altered mental status. Patient hospitalized for further management. Hospital Course: Patient admitted to the medical floor and treated with supportive measures for liver disease. Patient liver disease deemed deemed to be alcohol related. He was also treated with IV Ativan per [facility] protocol for alcohol withdrawal symptoms. UA suggested the presence of UTI but urine culture yielded no growth. His nausea and vomiting resolved with treatment. Patient seen by PT. He initially had difficulty with ambulating. His functional status improved with therapy. Patient was able to ambulate in the hallway with the IV infusion pole. He was able to eat well. Patient has clinically improved and deemed stable for discharge. He is informed to use a walker to ambulate to prevent falls, at least for the next 1 week as history and recover. He is prescribed lactulose for hepatic encephalopathy. Vital Signs/Physical Exam: Temp Pulse Resp BP Pulse Ox 97.4 F 78 18 184/100 H 96 07/28/20 12:00 07/28/20 12:00 07/28/20 12:00 07/28/20 12:00 07/28/20 12:00 General: Alert, In no apparent distress HEENT: Mucous membr. moist/pink, Scleral icterus Neck: Supple, JVD not distended Respiratory: Clear to auscultation bilaterally, Normal air movement Cardiovascular: No edema, Regular rate/rhythm, Normal S1 S2 Gastrointestinal: Normal bowel sounds, Soft and benign, Non-distended, No tenderness Musculoskeletal: No swelling Integumentary: Other (Jaundice skin) Neurological: Normal strength at 5/5 x4 extr, Cranial nerves 3-12 intact Laboratory Data at Discharge: WBC 5.60 K/uL (4.3-10.9) 07/27/20 04:09 Hgb 12.4 g/dL (13.6-17.9) L 07/27/20 04:09 Hct 37.5 % (39.6-49.0) L 07/27/20 04:09 Plt Count 79 K/uL (152-406) L 07/27/20 04:09 PT 16.9 SECONDS (9.5-12.5) H 07/24/20 08:59 INR 1.46 07/24/20 08:59 Sodium 136 mmol/L (136-145) 07/28/20 04:17 Potassium 3.6 mmol/L (3.5-5.1) 07/28/20 04:17 BUN 11 mg/dL (7-18) 07/28/20 04:17 Creatinine 0.61 mg/dL (0.55-1.3) 07/28/20 04:17 Glucose 117 mg/dL (74-106) H 07/28/20 04:17 Phosphorus 1.9 mg/dL (2.5-4.9) L 07/28/20 04:17 Magnesium 1.9 mg/dL (1.8-2.4) 07/27/20 04:09 Total Bilirubin 6.5 mg/dL (0.2-1.0) H* 07/27/20 04:09 AST 124 U/L (15-37) H 07/27/20 04:09 ALT 67 U/L (12-78) 07/27/20 04:09 Alkaline Phosphatase 116 U/L (45-117) 07/27/20 04:09 Triglycerides 98 mg/dL (<150) 07/25/20 03:51 Cholesterol 149 mg/dL (<200) 07/25/20 03:51 HDL Cholesterol 20 mg/dL (40-60) L 07/25/20 03:51 Cholesterol/HDL Ratio 7.45 07/25/20 03:51 Lipase 3038 U/L (73-393) H 07/25/20 03:51 Home Medications: Folic Acid 1 mg PO DAILY #30 tablet 07/28/20 Lactulose 30 ml PO BID #1 bottle 07/28/20 Pantoprazole [Protonix Tab*] 40 mg PO DAILY #30 tab 07/28/20 Thiamine HCl [Vitamin B-1*] 100 mg PO DAILY #30 tablet 07/28/20 levoFLOXacin [Levaquin] 500 mg PO DAILY #2 tab 07/28/20 New Medications: Folic Acid 1 mg PO DAILY #30 tablet Lactulose 30 ml PO BID #1 bottle levoFLOXacin [Levaquin] 500 mg PO DAILY #2 tab Pantoprazole [Protonix Tab*] 40 mg PO DAILY #30 tab Thiamine HCl [Vitamin B-1*] 100 mg PO DAILY #30 tablet Physician Discharge Instructions: Place ambulate with a walker for the next 1 week. Diet: Regular Activity: Fall precautions Followup: NONE,NONE [Primary Care Provider] - Time spent managing pt's care (in minutes): 36
[2020-07-28 16:44] VITALS: BP 130/80; TEMP 97.6
[2020-07-28] MEDS ORDERED: PANTOPRAZOLE 40MG TABLET PO SCH (17:17)
[2020-07-29 16:22] LABS: Alpha Fetoprotein-Tumor Marker 2.7 ng/mL (<6.1)
== END 2020-07-28 16:26 | disposition home or self-care (01) | DRG 432 ==
LOC: ER 08:26 → ERHOLD 12:49 → 4TH 14:11
PROVIDERS: ADMIT Internal Medicine; ATTEND Internal Medicine
DX: K70.30 Alcoholic cirrhosis of liver without ascites (principal); G93.41 Metabolic encephalopathy; N39.0 Urinary tract infection, site not specified; F10.239 Alcohol dependence with withdrawal, unspecified; E83.52 Hypercalcemia; K72.90 Hepatic failure, unspecified without coma; E80.6 Other disorders of bilirubin metabolism; Z20.822 Contact with and (suspected) exposure to COVID-19
CPT/HCPCS: 36415; 70450; 71045; 74177; 80048; 80053; 80061; 80074; 80076; 81003; 81015; 82103; 82105; 82140; 82390; 82728; 83540; 83690; 83735; 83880; 84100; 84132; 84443; 84466; 84484; 85025; 85610; 86038; 86255; 87040; 87086; 87088; 93005; 93880; 94760; 97116; 97161; 97530; 99285; J0696; J2405; J2765; J3411; J3475; J7030; Q9967; U0003